=== PATIENT | male | born 1945 | race Caucasian/White ===

== ENCOUNTER 2016-08-30 14:37 | Emergency (ER) | payer MEDICARE ==
[2016-08-30] MEDS ORDERED: AMLO2.5T45 PO (14:59)
[2016-08-30] MEDS ORDERED: BENA40TA3 PO (14:59)
[2016-08-30] MEDS ORDERED: ATEN-42 PO (14:59)
[2016-08-30 17:08] VITALS: BP 119/85
[2016-08-30] MEDS ORDERED: TETANUS, DIPHTHERIA, PERTUSSIS VAC/PF 0.5ML (>7YR OLD) IM ONE (17:30)
[2016-08-30] MEDS ORDERED: BACITRACIN ZINC OINT UDPKT TOP ONE (17:45)
== END 2016-08-30 17:50 | disposition home or self-care (01) ==
LOC: ER 14:59
DX: S50.812A Abrasion of left forearm, initial encounter (principal); W11.XXXA Fall on and from ladder, initial encounter; Y93.H2 Activity, gardening and landscaping; Y92.096 Garden or yard of other non-institutional residence as the place of occurrence of the external cause; I10 Essential (primary) hypertension; F17.210 Nicotine dependence, cigarettes, uncomplicated
CPT/HCPCS: 90471; 90715; 99283